=== PATIENT | female | born 1980 | race Caucasian/White ===

== ENCOUNTER 2019-12-01 10:23 | Inpatient (IN) | payer OTHER ==
[~2019-12-01] VITALS: Ht 152.4 cm; Wt 51.3 kg
[2019-12-01 10:24] VITALS: BP 146/86
[2019-12-01 11:17] LABS: BASOPHILS 0.7 % (0.0-2.0); EOSINOPHILS 3.2 % (0.0-3.0); HEMATOCRIT 42.5 % (37.0-47.0); HEMOGLOBIN 14.3 gm/dL (12.0-15.0); LYMPHOCYTES 30.5 % (24.0-44.0); MCH 32.9 pg (26.0-34.0); MCHC 33.8 g/dL (28.0-37.0); MCV 97.4 fL (80.0-100.0); MONOCYTES 9.9 % (1.0-8.0); PLATELET COUNT 274 thou/uL (150-400); POLYS 55.7 % (36.0-66.0); RBC 4.36 mil/uL (4.20-5.00); RDW 12.7 % (10.5-14.5); WBC 3.7 thou/uL (4.0-11.0)
[2019-12-01 11:20] LABS: CALCIUM 9.3 mg/dL (8.5-10.1); CREATININE 0.7 mg/dL (0.6-1.0); POTASSIUM 3.9 mmol/L (3.5-5.1)
[2019-12-01 11:23] LABS: URINE BILIRUBIN NEGATIVE (Negative); URINE BLOOD NEGATIVE (Negative); URINE CLARITY CLEAR; URINE COLOR YELLOW; URINE GLUCOSE-RANDOM* NEGATIVE (Negative); URINE KETONES NEGATIVE (Negative); URINE LEUKOCYTES-REFLEX NEGATIVE (Negative); URINE NITRITE-REFLEX NEGATIVE (Negative); URINE PROTEIN (DIPSTICK) NEGATIVE (Negative); URINE UROBILINOGEN 0.2 E.U./dl (0.2-1.0)
[2019-12-01 11:31] LABS: ALBUMIN 4.6 g/dL (3.4-5.0); TOTAL BILIRUBIN 0.9 mg/dL (<0.1-1.0); TOTAL PROTEIN 8.5 g/dL (6.4-8.2)
[2019-12-01] MEDS ORDERED: SERTRALINE HCL50 MG PO (11:33)
[2019-12-01 13:25] VITALS: BP 160/70
[2019-12-01 14:11] VITALS: BP 125/76
[2019-12-01 14:25] VITALS: BP 134/74
[2019-12-01 19:39] VITALS: BP 126/86
--- NOTE | 2019-12-01 20:09 | NUR ---
Admitted patient from ER, transferred to bed safely. A+Ox4. On room air. Vital signs stable. Admission education, history and assessment done, forms signed. Up ad colleen, independent with ADLs. With at bedside. On nothing per orem- pt informed and aware, ice chips and mouth swabs provided. With SL at L AC- intact and flushing well, started NS at 150cc/hr as ordered. Complained of nausea- PRN anti emetic given as prescribed. Pt scheduled for MRI+MRCP- faxed checklist to MRI; went down for procedure via wheelchair- tolerated well. Transferred to room safely. To continue monitoring patient.
--- NOTE | 2019-12-02 04:22 | NUR ---
PATIENT AOX4 MAKES NEEDS KNOWN. PATIENT IS UP AT WILMA. NAUSEA/VOMIT AND PAIN CONTROLLED THIS SHIFT. PATIENT IN BED ASLEEP AT THIS TIME BREATHING REGULAR AND UNLABOURED.
[2019-12-02 04:39] VITALS: BP 105/55
[2019-12-02 08:30] VITALS: BP 112/70
--- NOTE | 2019-12-02 10:55 | NUR ---
Received awake on bed. Due medications given as prescribed. A+Ox4. On room air. Vital signs stable. Up ad colleen, independent with ADLs. With NS at 150cc/hr, infusing well at L AC. On nothing per orem- pt informed and aware; mouth swabs and ice chips provided. Complained of nausea- PRN anti emetic to be given but pt refused, wanted to have ice chips instead- given. A/W MRI results from yesterday. To continue monitoring patient.
[2019-12-02 14:34] LABS: HEMATOCRIT 37.3 % (37.0-47.0); HEMOGLOBIN 12.5 gm/dL (12.0-15.0); MCH 33.1 pg (26.0-34.0); MCHC 33.6 g/dL (28.0-37.0); MCV 98.5 fL (80.0-100.0); RBC 3.79 mil/uL (4.20-5.00); RDW 12.8 % (10.5-14.5); WBC 7.5 thou/uL (4.0-11.0)
[2019-12-02 14:57] LABS: ALBUMIN 3.8 g/dL (3.4-5.0); CALCIUM 8.2 mg/dL (8.5-10.1); CREATININE 0.6 mg/dL (0.6-1.0); POTASSIUM 4.2 mmol/L (3.5-5.1); TOTAL BILIRUBIN 0.5 mg/dL (<0.1-1.0); TOTAL PROTEIN 7.2 g/dL (6.4-8.2)
[2019-12-02 16:08] VITALS: BP 106/63
[2019-12-02 19:50] VITALS: BP 129/62
[2019-12-03 05:56] LABS: HEMOGLOBIN 12.7 gm/dL (12.0-15.0); MCH 32.9 pg (26.0-34.0); MCHC 33.4 g/dL (28.0-37.0); MCV 98.4 fL (80.0-100.0); RBC 3.86 mil/uL (4.20-5.00); WBC 6.8 thou/uL (4.0-11.0)
[2019-12-03 07:23] LABS: ALBUMIN 3.8 g/dL (3.4-5.0); CALCIUM 8.1 mg/dL (8.5-10.1); CREATININE 0.4 mg/dL (0.6-1.0); MAGNESIUM 1.9 mg/dL (1.8-2.4); POTASSIUM 4.5 mmol/L (3.5-5.1); TOTAL BILIRUBIN 0.5 mg/dL (<0.1-1.0); TOTAL PROTEIN 6.9 g/dL (6.4-8.2)
[2019-12-03 07:40] VITALS: BP 105/67
--- NOTE | 2019-12-03 07:42 | NUR ---
ASSUMED PT CARE AROUND 1914. AXOX4. IN THE BEGINNING OF THE SHIFT, PT C/O HEADACHE. CALLED [facility] AND OBTAINED AN ORDER FOR IV TORADOL AND ADVIL. PT REFUSED ALL. LATER PT REPORTED HOWELL RESOLVED. NO S/S ACUTE DISTRESS NOTED OR REPORTED AT THIS TIME. CARE TRANSFERRED TO INCOMING RN AT THIS TIME.
[2019-12-03 08:08] LABS: HAV IgM AB (ANTI-HAV IgM) Negative (Negative); HEPATITIS B SURFACE AG Negative (Negative); HEPATITIS C VIRUS AB <0.1 (0.0-0.9)
[2019-12-03 11:55] VITALS: BP 126/59
--- NOTE | 2019-12-03 15:37 | NUR ---
Assumed patient care at 0715. Vital signs have been stable. Patient has complained of left ear and sinus pain. She was started on IVPB Atibiotics this am. The Antibiotics (Ampicillin-Sulbatam) gave patient abdominal pain, nausea and diarrhea. Dr aware of this; order discontinued. Patient was started on Claritin D. She recieved the first dose at approximately 1535. Patient has had minimal complaints related to her Pancreatitis. She continues on clear liquids and had a small serving of yogurt in which she tolerated well. Patient has had a Student Nurse providing for her as well as this nurse. She has been pleasant and cooperative. Will continue to monitor.
--- NOTE | 2019-12-03 16:33 | NUR ---
NOTIFIED THAT PT'S INSURANCE IS OUT OF NETWORK HERE AND THAT IF PT ISN'T TO DC TODAY PT NEEDS TO DC TO IN NETWORK FACILITY [facility]. CM NOTIFIED PT AND SHE INDICATED SHE WAS AGREEABLE TO TRANSFER. TRANSFER FORM COMPLETED CHART COPY ORDERED. CLINICAL INFOR FAXED. AWAITING RESPONSE. PT MAY ELECT TO HAVE FAMILY TRANSPORT OTHERWISE THERE IS A [employer] FORM IN THE MEDICAL INSURANCE COLLECTOR. CALL [facility] AT TO CHECK STATUS OF TRANSFER.
[2019-12-03] MEDS ORDERED: WORK EXCUSE (20:48)
[2019-12-03] MEDS ORDERED: CLARITIN10 M3 PO (20:48)
[2019-12-03 21:34] VITALS: BP 126/59
--- NOTE | 2019-12-04 01:10 | NUR ---
RECEIVED PT ON BED, UPSET AND FRUSTRATED. RECEIVED A REPORT FROM DAY RN THAT PT WAS SUPPOSED TO TRANSFER TO [facility] D/T PT'S INSURANCE NETWORK COVERAGE. DURING THE PROCESS OF TRANSFER, PT REFUSED TO BE TRANSFERRED TO [facility] AND REQUESTED TO BE DISCHARGED TO HOME WITH SOME EAR AND NASAL ATB. SPOKE TO PELT INSPECTOR AND MANAGER STUDY TALENT ASSOCIATE FOR HIMS CAME INTO D/C PT. MANAGER STUDY TALENT ASSOCIATE HAD CONVERSATION WITH PT THAT PT WILL NOT BE DISCAHRGED WITH ANY ATB D/T RECURRENT REACTIONS TO DIFFERENT ATB WHILE HOSPITALIZED AND MANAGER STUDY WILL NOT START ANY NEW ATB UPON PT'S D/C. MANAGER STUDY PROPOSED THAT PT STAY ANOTHER NIGHT TO HAVE SINUSTITIS EVALUATED BY PHYSICIAN IN AM. PT REFUSED AND LEFT AMA WITHOUGH SIGNING AMA FORM. TESTING SHAKING SHIPPING AT SCENE AND WITNESSED THE PT'S DEPARTUREE. IV TAKEN OUT. ALL BELONINGS WERE SENT WITH PT. PT LEFT WITH .
[2019-12-04 06:07] LABS: IgG 827 mg/dL (700-1600)
== END 2019-12-03 21:45 | disposition home or self-care (01) | DRG 440 ==
LOC: ER 10:23 → 4W 13:19 → EROBS 13:19 → 4W 14:11
PROVIDERS: Internal Medicine Gastroenterology; Nurse Practitioner; Nurse Practitioner Family; ADMIT Internal Medicine
DX: K85.00 Idiopathic acute pancreatitis without necrosis or infection (principal); T36.1X5A Adverse effect of cephalosporins and other beta-lactam antibiotics, initial encounter; T36.0X5A Adverse effect of penicillins, initial encounter; J32.9 Chronic sinusitis, unspecified; K86.1 Other chronic pancreatitis; Z88.8 Allergy status to other drugs, medicaments and biological substances; Z90.711 Acquired absence of uterus with remaining cervical stump; Z91.041 Radiographic dye allergy status; Y92.89 Other specified places as the place of occurrence of the external cause
CPT/HCPCS: 10040